=== PATIENT | female | born 1940 | race Caucasian/White ===

== ENCOUNTER 2020-09-10 22:03 | Observation (INO) | payer MEDICARE ==
[2020-09-11] MEDS ORDERED: oxyCODONE 5 MG Tab PO PRN (00:13)
[2020-09-11] MEDS ORDERED: Acetaminophen 325 MG Tab PO PRN (00:13)
[2020-09-11] MEDS ORDERED: Melatonin 3 MG Tab PO PRN (00:15)
--- NOTE | 2020-09-11 00:25 | PCM.HP.2 ---
H&P History of Present Illness - General Date of Service: 09/10/20 Admit Problem/Dx: Admission Diagnosis/Problem Admission Diagnosis/Problem Dementia associated with Parkinson's Disease Source of Information: Patient, Family (Boyfriend admitted gives limited report of HPI) History Limitations: Reports: Altered Mental Status - History of Present Illness Initial Comments - Free Text/Narative: chief complaint: no safe discharge plans. Ms. Lopez is traveling on vacation with her Boyfriend, who is being admitted to [facility] with new diagnosis of Covid-19 with hypoxia. Unfortunately, Ms. Lopez has dementia with Parkinson's disease and is unable to give a cohort response to questions and is confused. At this time it would be unsafe to leave Ms. Lopez alone at the Cabin. Mr. Traore is having the Neighbors come and pick her up tomorrow and they will be staying with her til his discharge. She is not having any symptoms of Covid-19 infection. she was vaccinated for Covid in the spring 2020. Severity: Moderate Associated Symptoms: Reports: Confusion - Related Data Allergies/Adverse Reactions: Allergies Allergy/AdvReac Type Severity Reaction Status Date / Time No Known Allergies Allergy Verified 09/10/20 23:54 Home Medications: Home Meds Carbidopa/Levodopa [Carbidopa-Levodopa 25-100 Tab] 1 tab PO TID 09/10/20 [History] Mirtazapine 7.5 mg PO BEDTIME 09/10/20 [History] Past Medical History HEENT History: Reports: Cataract, Hard of Hearing, Impaired Vision, Macular Degeneration Other HEENT History: cataract surgery Gastrointestinal History: Reports: Irritable Bowel Syndrome Genitourinary History: Reports: UTI, Recurrent 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: Musculoskeletal History: Reports: Osteoporosis Neurological History: Reports: Other (See Below) Other Neuro History: dementia Psychiatric History: Reports: Dementia, Depression Endocrine/Metabolic History: Reports: Hypothyroidism Dermatologic History: Reports: Other (See Below) Other Dermatologic History: skin taken off her abdomen - Infectious Disease History Infectious Disease History: Reports: Chicken Pox, Measles - Past Surgical History Endocrine Surgical History: Reports: None Neurological Surgical History: Reports: None Musculoskeletal Surgical History: Reports: None Oncologic Surgical History: Reports: None Dermatological Surgical History: Reports: None Social & Family History - Family History Family Medical History: No Pertinent Family History - Tobacco Use Tobacco Use Status *Q: Former Tobacco User Years of Tobacco use: 10 Used Tobacco, but Quit: Yes Month/Year Tobacco Last Used: September Second Hand Smoke Exposure: No - Caffeine Use Caffeine Use: Reports: Coffee, Tea - Recreational Drug Use Recreational Drug Use: No H&P Review of Systems - Review of Systems: Review Of Systems: Unable To Obtain (Ms. Lopez has dementia and is confused. Boyfriend reports this is normal for her.) Reason Not Obtained: dementia with confusion Exam - Exam Exam: See Below - Vital Signs Vital Signs: Last Vital Signs Temp 98.8 F 09/10/20 23:55 Pulse 99 09/10/20 23:55 Resp 18 09/10/20 23:55 BP 152/76 H 09/10/20 23:55 Pulse Ox 96 09/10/20 23:55 Weight: 108 lb 7.479 oz - Exam General: Alert, Cooperative, Other (pleasant 80 year old female, no distress, but unable to answers questions, confused- which is her baseline.) Neck: Supple, Trachea Midline Lungs: Clear to Auscultation, Normal Respiratory Effort Cardiovascular: Regular Rate, Regular Rhythm, Normal S1, Normal S2 Extremities: Normal Inspection, Normal Range of Motion, Non-Tender, No Pedal Edema Skin: Warm, Dry, Intact Psychiatric: Alert, Anxious (rambling answers to questions, pleasant.) Sepsis Event Note - Evaluation Sepsis Screening Result: No Definite Risk - Focused Exam Vital Signs: Vital Signs Temp Pulse Resp BP Pulse Ox 09/10/20 23:55 98.8 F 99 18 152/76 H 96 - Problem List (1) Dementia associated with Parkinson's disease SNOMED Code(s): 099300062 ICD Code: G20 - PARKINSON'S DISEASE; F02.80 - DEMENTIA IN OTH DISEASES CLASSD ELSWHR W/O BEHAVRL DISTURB Status: Acute Priority: High Current Visit: Yes Problem List Initiated/Reviewed/Updated: Yes Orders Last 24hrs: Active Orders 24 hr Category Date Time Status Patient Status Manage Transfer [TRANSFER] Routine ADT 09/11/20 00:10 Active Ambulate [RC] QID Care 09/11/20 00:13 Active May Shower [RC] ASDIRECTED Care 09/11/20 00:13 Active Notify Provider Vital Signs [RC] ASDIRECTED Care 09/11/20 00:14 Active Nurse Communication: Isolation [RC] ASDIRECTED Care 09/11/20 00:14 Active Oxygen Therapy [RC] PRN Care 09/11/20 00:13 Active Up ad Dahlia [RC] ASDIRECTED Care 09/11/20 00:13 Active VTE/DVT Education [RC] Per Unit Routine Care 09/11/20 00:13 Active Vital Signs [RC] QSHIFT Care 09/11/20 00:13 Active Regular Diet [DIET] Diet 09/11/20 Breakfast Active COVID-19/FLU A+B/RSV [MOLEC] Stat Lab 09/11/20 00:16 Ordered Acetaminophen [TylenoL] Med 09/11/20 00:13 Ordered 650 mg PO Q4H PRN Melatonin Med 09/11/20 00:15 Ordered 6 mg PO BEDTIME PRN oxyCODONE Med 09/11/20 00:13 Ordered 5 mg PO Q4H PRN Isolation [COMM] Routine Oth 09/11/20 00:14 Ordered Resuscitation Status Routine Resus Stat 09/11/20 00:13 Ordered Medication Orders Acetaminophen (Acetaminophen 325 Mg Tab) 650 mg PO Q4H PRN PRN Reason: Pain (Mild 1-3)/fever Melatonin (Melatonin 3 Mg Tab) 6 mg PO BEDTIME PRN PRN Reason: Insomnia Oxycodone HCl (Oxycodone 5 Mg Tab) 5 mg PO Q4H PRN PRN Reason: Pain (moderate 4-6) Assessment/Plan Comment:: Assessment/Plan Comment:: DEMENTIA WITH PARKINSON'S DISEASE DEMENTIA WITH PARKINSON'S DISEASE Ms. Lopez is traveling on vacation with her Boyfriend, who is being admitted to [facility] with new diagnosis of Covid-19 with hypoxia. 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 She gives rambling answers to questions and is confused. Her Boyfriend states this is normal for her. No concerns with changes in mental status. At this time it would be unsafe to leave Ms. Lopez alone at the Cabin. Mr. Traore is having the Neighbors come and pick her up tomorrow and they will be staying with her til his discharge. She is not having any symptoms of Covid-19 infection. she was vaccinated for Covid-19 spring 2020. PLAN OF CARE -Covid testing ordered due to exposure to active case -continue outpatient medications for Parkinson Disease -monitor for safety -plan for Neighbors to picking machine operator helper tomorrow and will be staying with Ms. Lopez until Mr. Traore is discharged. MAINTENANCE ISSUES -DVT prophylaxis; ambulate -GI prophylaxis; not indicated -Borja catheter; not indicated -Nutrition; regular diet -Nicotine dependence; not required CODE STATUS-FULL CODE ADMISSION STATUS-this patient will be admitted to observation status, expect no more than a one night hospital stay for evaluation and management of problems as outlined above. DISPOSITION-anticipate discharge to home after the hospital stay. [facility] - Mortality Measure Prognosis:: Good - Mortality Measure Prognosis:: Good
[2020-09-11 06:01] LABS: CORONAVIRUS COVID-19 NAA POSITIVE (NEGATIVE)
[2020-09-11] MEDS ORDERED: Carbidopa/Levodopa 25-100 MG **PTOM PO SCH (09:00)
--- NOTE | 2020-09-11 12:16 | PCM.DCSUM1 ---
Discharge Summary - Hospital Course Brief History: 80-year-old female with history of dementia secondary to Parkinson's disease who was admitted for observation to help determine a safe discharge plan since her boyfriend and primary caregiver was sick with COVID-19 pneumonia. Diagnosis: Stroke: No - Discharge Data Discharge Date: 09/11/20 Discharge Disposition: Home, Self-Care 01 Condition: Good - Referral to Home Health Primary Care Physician: PCP None - Discharge Diagnosis/Problem(s) (1) COVID-19 SNOMED Code(s): 729524787 ICD Code: U07.1 - COVID-19 Status: Acute Current Visit: Yes (2) Dementia associated with Parkinson's disease SNOMED Code(s): 188458639 ICD Code: G20 - PARKINSON'S DISEASE; F02.80 - DEMENTIA IN OTH DISEASES CLASSD ELSWHR W/O BEHAVRL DISTURB Status: Chronic Priority: High Current Visit: Yes - Patient Summary/Data Hospital Course: Madelaine was admitted to observation last night until a safe discharge plan could be determined. She is traveling with her boyfriend who was positive for COVID- 19 and sick enough to need hospitalization. She has mild dementia but was not able to make at home and no one was available to help get her there. She did test positive for COVID-19 infection. Her only symptom currently is fatigue. There were no acute events overnight. On the morning of discharge her boyfriend was able to find someone for her to follow-up to the cabin. They feel that they have adequate food and resources there and somebody will be checking on her. Her first day/positive test was 09/10 and she will need to quarantine through 09/19. We did discuss symptoms that should be monitored for an prompt evaluation if they develop including significant shortness of breath or profound weakness. She is stable and safe for discharge. - Patient Instructions Diet: Regular Diet as Tolerated Activity: As Tolerated Other/Special Instructions: You were in the hospital for observation to help determine a safe discharge plan. Your COVID-19 test was positive. At this time you are not sick enough to require any sort of specific treatment. You should do your best to maintain hydration by drinking plenty of fluids. If you have a fever or muscle aches you can use acetaminophen to help control the symptoms. If you have progressive shortness of breath or profound weakness that limits your ability to take care of yourself you should seek medical attention. Because you did not have symptoms at the time of diagnosis you should quarantine for 10 days with the first day of quarantine being September 10 and extending through September 19. - Discharge Plan *PRESCRIPTION DRUG MONITORING PROGRAM REVIEWED*: Not Applicable *COPY OF PRESCRIPTION DRUG MONITORING REPORT IN PATIENT DAX: Not Applicable Home Medications: Home Meds Carbidopa/Levodopa [Carbidopa-Levodopa 25-100 Tab] 1 tab PO TID 09/10/20 [History] Mirtazapine 7.5 mg PO BEDTIME 09/10/20 [History] Oxygen Therapy Mode: Room Air Patient Handouts: 10 Things You Can Do to Manage Your COVID-19 Symptoms at Home - CDC, Dehydration, Adult, [id number] - Discharge Summary/Plan Comment DC Time >30 min.: No - Patient Data Vitals - Most Recent: Last Vital Signs Temp 37.1 C 09/11/20 04:52 Pulse 104 H 09/11/20 04:52 Resp 18 09/11/20 04:52 BP 147/68 H 09/11/20 04:52 Pulse Ox 98 09/11/20 04:52 Weight - Most Recent: 49.2 kg Lab Results - Last 24 hrs: Laboratory Results - last 24 hr 09/11/20 Range/Units 00:16 Influenza Type A RNA Negative (NEGATIVE) RSV RNA (INAAT) Negative (NEGATIVE) Influenza Type B RNA Negative (NEGATIVE) SARS-CoV-2 RNA (HALYEE) Positive H (NEGATIVE) Med Orders - Current: Current Medications Acetaminophen (Acetaminophen 325 Mg Tab) 650 mg PO Q4H PRN PRN Reason: Pain (Mild 1-3)/fever Carbidopa/Levodopa (Carbidopa/Levodopa 25-100 Mg Ptom) 1 tab PO TID COOPER Last Admin: 09/11/20 09:03 Dose: 1 tab Documented by: Melatonin (Melatonin 3 Mg Tab) 6 mg PO BEDTIME PRN PRN Reason: Insomnia Oxycodone HCl (Oxycodone 5 Mg Tab) 5 mg PO Q4H PRN PRN Reason: Pain (moderate 4-6) Mirtazapine 7.5mg (Ptom) 0 each PO BEDTIME COOPER Discontinued Medications Mirtazapine (Mirtazapine 15 Mg Tab) 7.5 mg PO BEDTIME COOPER
[2020-09-11] MEDS ORDERED: Mirtazapine 15 MG Tab PO SCH (21:00)
[2020-09-11] MEDS ORDERED: MIRTAZAPINE 7.5 MG PO SCH (21:00)
== END 2020-09-11 13:15 | disposition home or self-care (01) ==
LOC: JP.MS 22:03 → JP.2SS 22:26
PROVIDERS: ADMIT Internal Medicine; ATTEND Internal Medicine
DX: U07.1 COVID-19 (principal); R09.02 Hypoxemia; G20 Parkinson's disease; F02.80 Dementia in other diseases classified elsewhere, unspecified severity, without behavioral disturbance, psychotic disturbance, mood disturbance, and anxiety; Z79.899 Other long term (current) drug therapy; Z87.891 Personal history of nicotine dependence
CPT/HCPCS: 0241U; A9270; G0378